=== PATIENT | female | born 1990 | race Caucasian/White ===

== ENCOUNTER → 2017-02-16 | Outpatient (CLI) | payer OTHER ==
[~2017-02-16] MED LIST: AC325T PO; ACHYD1T PO; AMPH7.5T PO; DCS100C PO; FERR-57 PO; HYDR-3583 PO; IBP600T1 PO; Ibuprofen PO; NAPR550T PO; PREN1TAB25 PO; PREN1TAB39 PO; ZLP10T PO
--- NOTE | 2017-02-16 14:45 | Diagnostic Imaging Report ---
INDICATION: Evaluate size and dates. COMPARISON: None. DISCUSSION: Transabdominal sonographic evaluation of the pelvis was performed. Single live intrauterine at 16 weeks 2 days by today's sonographic measurements. EDC by today's ultrasound is 08/01/2017. presentation is cephalic. Normal amniotic fluid index. Grade 1 placenta is located anteriorly with no placenta previa. heart rate measures 150 beats per minute. gender is female. Biparietal diameter measures 3.4 cm. Head circumference measures 12.5 cm. Abdominal circumference measures 9.7 cm. Femur length measures 2 cm. No acute abnormality identified. IMPRESSION: 1. Single live intrauterine at 16 weeks 2 days by sonographic measurements. 2. Recommend short-term sonographic followup for detailed anatomical survey. Dictated by: Dictated on workstation # [id number]
== END ==
LOC: RAD 10:09
PROVIDERS: ATTEND Family Medicine
DX: Z36 Encounter for antenatal screening of mother (principal); Z3A.14 14 weeks gestation of pregnancy
CPT/HCPCS: 76805

== ENCOUNTER → 2017-05-17 | Outpatient (CLI) | payer MEDICAID ==
--- NOTE | 2017-05-17 17:23 | Diagnostic Imaging Report ---
INDICATION: Evaluate size and dates. TECHNIQUE: Multiple real-time grayscale images were obtained over the gravid uterus. COMPARISON: None FINDINGS: Single live intrauterine with anatomic measurement corresponding to a 29 week, 1 day gestation. Fetus is in the cephalic presentation. Anterior placenta. heart rate 155 bpm. Normal cerebellum, ventricles, four-chamber heart, stomach, kidneys, urinary bladder, cord insertion and spine are documented. REYNALDO measures 11.76 cm. Biometrical measurements are as follows: Biparietal 7.38 cm, age 29 weeks 5 days. Head circumference 26.58 cm, age 29 weeks 0 days. Abdominal circumference 24.38 cm, age 28 weeks 5 days. Femur length 5.44 cm, age 28 weeks 6 days. Sonographic estimate age: 29 weeks 1 days. Sonographic estimated date of delivery: 08/01/2017. Estimated Weight: 1280 gm (+/- 187 gm). LMP percentile: 25%. heart rate: 155 beats per minute. number: 1 of 1. IMPRESSION: Single intrauterine with anatomic measurements corresponding to a 29 week, 1 day gestation. No anatomic abnormalities identified. Measurements as above. Dictated by: Dictated on workstation # [id number]
== END ==
LOC: RAD 13:05
PROVIDERS: ATTEND Family Medicine
DX: Z36 Encounter for antenatal screening of mother (principal); Z3A.29 29 weeks gestation of pregnancy
CPT/HCPCS: 76805

== ENCOUNTER 2017-06-06 20:04 | Outpatient (CLI) | payer MEDICAID ==
[~2017-06-06] VITALS: Ht 157.5 cm; Wt 59.9 kg
[2017-06-06] MEDS ORDERED: PREN-142 PO (20:19)
[2017-06-06] MEDS ORDERED: FERR-84 PO (20:19)
[2017-06-06 20:28] LABS: BILIRUBIN,URINE NEGATIVE (NEGATIVE); KETONES,URINE NEGATIVE (NEGATIVE); LEUKOCYTE ESTERASE ,URINE 3+ (NEGATIVE); NITRITE,URINE NEGATIVE (NEGATIVE); PH,URINE 8 (5-9); PROTEIN,URINE 1+ (NEGATIVE); UROBILINOGEN,URINE NORMAL (NORMAL)
[2017-06-06 20:29] VITALS: BP 114/72
[2017-06-06] MEDS ORDERED: CEPHALEXIN 250 MG (KEFLEX) CAP PO ONE ×2 (21:09→21:15)
[2017-06-07] MEDS ORDERED: CEPH-506 PO (05:00)
--- NOTE | 2017-06-07 08:12 | Physician Query-Final Dx ---
VELVET ABBASI 06/07/17 0812: Clinic Account Progress/Dx Physician Query: Please give diagnosis Date of Service Jun 06, 2017 at 20:04 DAKOTA HURLEY MD 07/03/17 1318: Clinic Account Progress/Dx DIAGNOSIS: Diagnosis Decreased movement VELVET ABBASI Jun 07, 2017 08:12 DAKOTA HURLEY MD Jul 03, 2017 13:18
[2017-06-07] MEDS ORDERED: CEPHALEXIN 250 MG (KEFLEX) CAP PO SCH (09:00)
== END 2017-06-06 23:11 | disposition home or self-care (01) ==
LOC: WSo 20:04 → LDRP 20:04 → WSo 23:11
PROVIDERS: ATTEND Family Medicine
DX: O36.8130 Decreased fetal movements, third trimester, not applicable or unspecified (principal); Z3A.32 32 weeks gestation of pregnancy
CPT/HCPCS: 81000; 99214

== ENCOUNTER 2017-07-18 16:46 | Inpatient (IN) | payer MEDICAID ==
[~2017-07-18] VITALS: Ht 157.5 cm; Wt 59.9 kg
[2017-07-18] VITALS (9 sets, daily range): BP systolic 101–125; BP diastolic 53–69
[~2017-07-18 16:46] MED LIST changes: +CEPH-506 PO; +FERR-84 PO; +PREN-142 PO
[2017-07-18] MEDS ORDERED: LACTATED RINGERS 1,000 ML IV ONE (18:15)
[2017-07-18 18:23] LABS: BILIRUBIN,URINE NEGATIVE (NEGATIVE); KETONES,URINE NEGATIVE (NEGATIVE); LEUKOCYTE ESTERASE ,URINE 1+ (NEGATIVE); NITRITE,URINE NEGATIVE (NEGATIVE); PH,URINE 7 (5-9); PROTEIN,URINE NEGATIVE (NEGATIVE); UROBILINOGEN,URINE NORMAL (NORMAL)
[2017-07-18 18:29] LABS: SQUAMOUS EPITHELIAL CELL,UR RARE /HPF; WBC,URINE RARE /HPF
--- NOTE | 2017-07-18 18:46 | History & Physical-OB ---
OB - Chief Complaint & HPI Date/Time Date of Admission: currently observation status July 18, 2017 Time Seen by Provider: 18:45 Chief Complaint/History OB-Reason for Admission/Chief: contractions Hx : 5 Hx Para: 3 Expected Date of Delivery: Aug 01, 2017 Gestational Age in Weeks: 38 Gestational Age in Days: 0 History of Labs GBS negative Allergies and Home Medications Allergies Coded Allergies: Penicillins (Unverified Allergy, Unknown, STOPS BREATHING, 05/02/14) Sulfa (Sulfonamide Antibiotics) (Unverified Allergy, Unknown, FAMILY HX OF REACTIONS, 05/02/14) atomoxetine HCl (Unverified Adverse Reaction, Intermediate, SWELLING IN THROAT, 07/10/13) Home Medications Amphet Asp/Amphet/D-Amphet 7.5 Mg Tablet, 15 MG PO DAILY, (Reported) Ferrous Sulfate 325 Mg Tablet, 325 MG PO DAILY, (Reported) Vit No.124/Iron/FA 1 Each Tablet, 1 EACH PO DAILY, (Reported) OB - History Hx of Present Care: Yes Ultrasounds: Normal mid trimester US Obstetrical Complications: None Medical Complications: None Obstetrical History Hx : 5 Hx Para: 3 Hx Termination: Yes Hx Total # of Abortions (Spona: 1 Hx Multiple Gestation: No Hx Stillbirth: No Hx Complication: No Hx Induced Hypertens: No Hx Maternal Gestational Diabet: No Delivery History Hx Dystocia: No Hx Large For Gestational Age I: No Hx Small for Gestational Age I: No Hx Section: Yes Hx Vaginal Delivery Post C-Sec: No Hx Blood Disorders: No Patient Past Medical History no chronic medical problems Social History/Family History Recent Infectious Disease Expo: No Immunizations Tetanus Booster (TDap): Less than 5yrs Date of Influenza Vaccine: Oct 14, 2013 OB - Admission Exam Physical Exam Date Seen by Provider: Jul 18, 2017 Time Seen by Provider: 18:45 Vitals: Vital Signs 07/18/17 18:00 Pulse 88 Resp 18 B/P (MAP) 106/63 HEENT: Moist Membranes Heart: Rhythm Normal Lungs: Clear Abdomen: Gravid Cervical Dilatation: Fingertip Effacement: 50% Station: Ballotable Membranes: Intact Heart Rate: 140's Accelerations: Accelerations Present Decelerations: Variable Decelerations (few) Contractions on Admission: < 5 Minutes Apart Intensity: Mild Labs Laboratory Tests Test 07/18/17 18:15 Range/Units Urine Color YELLOW Urine Clarity CLEAR Urine pH 7 5-9 Urine Specific Riva 1.005 L 1.016-1.022 Urine Protein NEGATIVE NEGATIVE Urine Glucose (UA) NEGATIVE NEGATIVE Urine Ketones NEGATIVE NEGATIVE Urine Nitrite NEGATIVE NEGATIVE Urine Bilirubin NEGATIVE NEGATIVE Urine Urobilinogen NORMAL NORMAL MG/DL Urine Leukocyte Esterase 1+ H NEGATIVE Urine RBC (Auto) NEGATIVE NEGATIVE Urine RBC NONE /HPF Urine WBC RARE /HPF Urine Squamous Epithelial Cells RARE /HPF Urine Crystals NONE /LPF Urine Bacteria NEGATIVE /HPF Urine Casts NONE /LPF Urine Mucus NEGATIVE /LPF Urine Culture Indicated NO OB - Assessment/Plan/Diagnosis Assessment Assessment: other (intrauterine at 38 weeks with uterine contractions and history of previous section) Plan Plan: Expectant Management Other Plan -Will continue to monitor for any change of cervix -IV fluids initiated - DARCIE DOLL MD Jul 18, 2017 18:46
[2017-07-18 19:56] LABS: BASOPHILS % (AUTO) 0 % (0-10); EOSINOPHILS # (AUTO) 0.2 10^3/uL (0.0-0.3); EOSINOPHILS % (AUTO) 1 % (0-10); LYMPHOCYTES # (AUTO) 2.9 X 10^3 (1.0-4.0); LYMPHOCYTES % (AUTO) 17 % (12-44); MEAN CORPUSCULAR HEMOGLOBIN 33 PG (25-34); MEAN CORPUSCULAR HGB CONC 33 G/DL (32-36); MEAN CORPUSCULAR VOLUME 98 FL (80-99); MEAN PLATELET VOLUME 9.7 FL (7.4-10.4); MONOCYTES # (AUTO) 1.4 X 10^3 (0.0-1.0); MONOCYTES % (AUTO) 8 % (0-12); NEUTROPHILS # (AUTO) 12.6 X 10^3 (1.8-7.8); NEUTROPHILS % (AUTO) 74 % (42-75); PLATELET COUNT 432 10^3/uL (130-400); RED BLOOD COUNT 3.71 10^6/uL (4.35-5.85); RED CELL DISTRIBUTION WIDTH 14.6 % (10.0-14.5); WHITE BLOOD COUNT 17.2 10^3/uL (4.3-11.0)
[2017-07-18] MEDS: LACTATED RINGERS 1,000 ML IV SCH (20:10)
[2017-07-18 20:38] LABS: BAND NEUTROPHILS 1 %; BASOPHILS % (MANUAL) 0 %; EOSINOPHILS % (MANUAL) 2 %; LYMPHOCYTES % (MANUAL) 24 %; NEUTROPHILS % (MANUAL) 72 %
[2017-07-18] MEDS ORDERED: ZOLPIDEM 5 MG (AMBIEN) TAB PO SCH (21:00)
[2017-07-19 07:00] VITALS: BP 107/62
[2017-07-19] MEDS ORDERED: ceFAZolin 2 GM/50 ML NS 50 ML IV ONE (07:00)
[2017-07-19] MEDS ORDERED: CITRIC ACID/SOB CIT (BICITRA) 30 ML UDC ONE (07:01)
[2017-07-19] MEDS ORDERED: METOCLOPRAMIDE INJ 10 MG/2 ML (REGLAN) ONE (07:01)
[2017-07-19] MEDS ORDERED: FAMOTIDINE 20MG/2ML IV (PEPCID) ONE (07:07)
[2017-07-19] MEDS ORDERED: METOCLOPRAMIDE INJ 10 MG/2 ML (REGLAN) IV ONE (07:15)
[2017-07-19] MEDS ORDERED: CITRIC ACID/SOB CIT (BICITRA) 30 ML UDC PO ONE (07:15)
[2017-07-19] MEDS ORDERED: FAMOTIDINE 20MG/2ML IV (PEPCID) IV ONE (07:15)
[2017-07-19] MEDS: LACTATED RINGERS 1,000 ML IV SCH ×3 (07:16→07:55)
[2017-07-19] MEDS ORDERED: OXYTOCIN/NORMAL SALINE 1,000 ML IV ONE (07:19)
[2017-07-19] MEDS ORDERED: fentaNYL INJECTION 100 MCG/2 ML AMP ONE (07:19)
[2017-07-19] MEDS ORDERED: OXYTOCIN/NORMAL SALINE 500 ML IV SCH (07:44)
[2017-07-19] MEDS ORDERED: MEASLES,MUMPS,RUBELLA 1 EA INJ SC SCH (07:45)
[2017-07-19] MEDS ORDERED: ONDANSETRON 4 MG/2 ML (SDV) Z0FRAN IVP PRN (07:45)
[2017-07-19] MEDS ORDERED: HYDROmorphone (DILAUDID) 2 MG/ML VIAL IVP PRN (07:45)
[2017-07-19] MEDS ORDERED: TETANUS,DIPTH,PERTUSS P/F (BOOSTRIX) 0.5 ML VIAL IM SCH (07:45)
[2017-07-19] MEDS: KETOROLAC 30 MG/ML VIAL IVP SCH ×2 (09:00→16:31)
[2017-07-19] MEDS: HYDROcodone/APAP 5 MG/325 MG (LORTAB) TAB PO PRN ×3 (11:10→23:37)
[2017-07-19 13:15] VITALS: BP 106/63
--- NOTE | 2017-07-19 13:57 | OPERATIVE REPORT ---
DATE OF SERVICE: PREOPERATIVE DIAGNOSIS: 1. A 27-year-old G4, P3 at 38 weeks and 1 day gestation. 2. Previous section. 3. Family history of ovarian cancer. POSTOPERATIVE DIAGNOSIS: 1. A 27-year-old G4, P3 at 38 weeks and 1 day gestation. 2. Previous section. 3. Family history of ovarian cancer. PROCEDURE PERFORMED: Repeat low transverse section with risk reducing bilateral salpingectomy. SURGEON: Dr. Hema Mclean. ANESTHESIA: Spinal. ESTIMATED BLOOD LOSS: 600 mL. URINE OUTPUT: 175 mL clear at the end of the procedure. FLUIDS: 1700 mL Lactated Ringers solution. FINDINGS: Live female infant, weight pending. Apgars of 7 and 8. Grossly normal appearing uterus, bilateral fallopian tubes and ovaries. Dense peritoneal and lower pelvic anterior abdominal wall scar tissue. SPECIMENS SENT: Bilateral fallopian tubes. INDICATION: This 27-year-old female was admitted last night for signs of labor, contractions every 3-5 minutes. She was IV fluid bolused and fetus remained stable overnight. Therefore, this morning, we awaited to see if her contraction pattern would change. It did space out to every 5-7 minutes; however, the patient continued to be very uncomfortable so we decided to proceed with delivery at 38 and 1 due to suspicion for underlying latent labor. Risks of the procedure were reviewed with the patient in the preoperative area, risks of bleeding, infection, damage to any surrounding structures including but not limited to bowel, bladder, ureter, kidneys, risks of damaging the infant, risk of need for blood transfusion and even . After everything was discussed with the patient, consent was obtained in preoperative area and the patient was taken to the operating room. OPERATIVE REPORT IN DETAIL: Once in the operating room, spinal anesthesia was found to be adequate. She was placed in the supine position with leftward tilt and prepped and draped in normal sterile fashion. A Pfannenstiel skin incision made through a previously existing scar using a knife and carried down to underlying fascia using Bovie cautery. The fascial incision was extended laterally using Bovie cautery. Superior aspect of the fascial incision was then grasped with Guerline clamps, tented upward and dissected off the underlying rectus muscle. The inferior aspect of the fascial incision was then grasped with a Guerline clamp, tented upward and dissected off the underlying rectus muscle. Rectus muscle was then dissected down the midline using Banda scissors which exposes the peritoneum which was entered bluntly and the peritoneal incision was extended superiorly and inferiorly using Metzenbaum scissors with good visualization of the underlying bowel and bladder. I then identified the lower uterine segment after placing the Junior ring retractor in the peritoneal incision which offered significant lateral sidewall retraction. I then proceeded with myotomy through the lower uterine segment using the knife and carried down until I am able to visualize the membrane. I created a bladder flap with blunt dissection at my 1st knife pass. Amniotomy was then performed using Allis clamp. Clear fluid was noted. Infant found to be in vertex presentation. With gentle fundal pressure the 's head was delivered up through the incision where there was a nuchal cord reduced x1. The nares and oropharynx were bulb suctioned. Anterior and posterior shoulders were delivered and the infant was brought to the operative field where cord was triply clamped and cut, was taken off the field by Dr. Hernández. Cord blood was collected, 3 vessel cord with intact placenta that was delivered spontaneously thereafter. IV Pitocin was initiated to facilitate uterine contractions and fundus was firmed by manual massage. Uterus was then exteriorized and cleared of all endometrial clots and debris. I then closed the uterine incision using 0 Vicryl in running locked fashion. A 2nd layer of 0 Monocryl was placed in imbricating fashion. Excellent hemostasis is noted after doing so. I then elevated the uterus up out of the incision which exposes the fallopian tubes bilaterally. I removed bilateral fallopian tubes in this identical fashion. I created a window in the mesosalpinx using monopolar cautery and then took this down the mesosalpinx it from its blood supply. I then at the distal ampullary portion of the tube placed a 2-0 Vicryl suture tie and then the fallopian tube from its distal connection point. At its more proximal connection point at the uterus, I in a similar fashion placed a 2-0 Vicryl suture ligating the tube at this area and amputating it using cautery after doing so. After which there was no active bleeding from any of my dissection planes. I placed the uterus back within the pelvis, copiously irrigated the pelvis. There was no active bleeding noted from any of my dissection planes. Intercede antiadhesive was placed at the lower transverse incision. I then proceeded with closing the peritoneum using 3-0 Vicryl suture in running fashion. The rectus muscle was reapproximated using 3-0 Vicryl in interrupted fashion. The fascia was reapproximated using 0 Vicryl suture in running fashion, the subcutaneous tissues were reapproximated using 3-0 plain in a running subcuticular stitch. The skin was reapproximated using 4-0 Monocryl in running subcuticular. Dermabond was applied to the incision. Sterile dressing was adhesed with white tape. The Mares catheter was left in place to be taken out in the recovery area. Lap and sponge counts correct at the end of the procedure. Instrument count was correct as well. The patient tolerated the procedure well and was sent to recovery area in stable condition. Two grams of Ancef were given preoperatively for infection prophylaxis. Job ID: [id number] DocumentID: [id number] Dictated Date: 07/19/2017 09:00:02 Band Scroll Saw Operator Date: 07/19/2017 13:56:34 Dictated By: DO ALAN VO
[2017-07-19] MEDS ORDERED: CATHETER FLUSH 10 ML SYR IV SCH (14:00)
[2017-07-19 18:30] VITALS: BP 109/57
[2017-07-19 20:40] VITALS: BP 116/67
[2017-07-19] MEDS: DOCUSATE SODIUM 100 MG (COLACE) CAP PO SCH (20:47)
[2017-07-19] MEDS: IBUPROFEN 600 MG (MOTRIN) TAB PO SCH (22:15)
[2017-07-20 02:25] VITALS: BP 103/63
[2017-07-20] MEDS ORDERED: IBUPROFEN 600 MG (MOTRIN) TAB PO ONE (03:43)
[2017-07-20] MEDS: IBUPROFEN 600 MG (MOTRIN) TAB PO SCH ×4 (03:52→20:16)
[2017-07-20 05:44] LABS: BASOPHILS % (AUTO) 0 % (0-10); EOSINOPHILS # (AUTO) 0.3 10^3/uL (0.0-0.3); EOSINOPHILS % (AUTO) 2 % (0-10); LYMPHOCYTES # (AUTO) 3.3 X 10^3 (1.0-4.0); LYMPHOCYTES % (AUTO) 25 % (12-44); MEAN CORPUSCULAR HEMOGLOBIN 33 PG (25-34); MEAN CORPUSCULAR HGB CONC 33 G/DL (32-36); MEAN CORPUSCULAR VOLUME 98 FL (80-99); MONOCYTES # (AUTO) 1.7 X 10^3 (0.0-1.0); MONOCYTES % (AUTO) 13 % (0-12); NEUTROPHILS % (AUTO) 60 % (42-75); PLATELET COUNT 441 10^3/uL (130-400); RED BLOOD COUNT 3.22 10^6/uL (4.35-5.85); RED CELL DISTRIBUTION WIDTH 14.6 % (10.0-14.5); WHITE BLOOD COUNT 13.4 10^3/uL (4.3-11.0)
[2017-07-20 08:45] VITALS: BP 101/66
[2017-07-20] MEDS: DOCUSATE SODIUM 100 MG (COLACE) CAP PO SCH ×2 (08:45→20:16)
[2017-07-20] MEDS: HYDROcodone/APAP 5 MG/325 MG (LORTAB) TAB PO PRN ×3 (08:46→20:17)
--- NOTE | 2017-07-20 11:42 | Progress Note-Standard ---
Standard Progress Note Progress Notes/Assess & Plan Date Seen by Provider: Jul 20, 2017 Time Seen by Provider: 11:45 Progress/Assessment & Plan Patient doing well POD 1 RLTCS with RRS bilateral. She is ambulating and voiding freely, pain well controlled. Vital Sign - Last 24 Hours 07/19/17 07/19/17 07/19/17 07/20/17 13:15 18:30 20:40 02:25 Temp 97.6 96.7 97.2 96.6 Pulse 69 85 73 75 Resp 18 18 18 18 B/P (MAP) 106/63 109/57 116/67 103/63 Pulse Ox 99 99 98 96 O2 Delivery Room Air Room Air 07/20/17 08:45 Temp 97.8 Pulse 68 Resp 18 B/P (MAP) 101/66 Pulse Ox 98 Incision: c/d/i Laboratory Tests Test 07/20/17 05:07 Range/Units White Blood Count 13.4 H 4.3-11.0 10^3/uL Red Blood Count 3.22 L 4.35-5.85 10^6/uL Hemoglobin 10.5 L 11.5-16.0 G/DL Hematocrit 32 L 35-52 % Mean Corpuscular Volume 98 80-99 FL Mean Corpuscular Hemoglobin 33 25-34 PG Mean Corpuscular Hemoglobin Concent 33 32-36 G/DL Red Cell Distribution Width 14.6 H 10.0-14.5 % Platelet Count 441 H 130-400 10^3/uL Mean Platelet Volume 10.0 7.4-10.4 FL Neutrophils (%) (Auto) 60 42-75 % Lymphocytes (%) (Auto) 25 12-44 % Monocytes (%) (Auto) 13 H 0-12 % Eosinophils (%) (Auto) 2 0-10 % Basophils (%) (Auto) 0 0-10 % Neutrophils # (Auto) 8.0 H 1.8-7.8 X 10^3 Lymphocytes # (Auto) 3.3 1.0-4.0 X 10^3 Monocytes # (Auto) 1.7 H 0.0-1.0 X 10^3 Eosinophils # (Auto) 0.3 0.0-0.3 10^3/uL Basophils # (Auto) 0.0 0.0-0.1 10^3/uL Diagnosis: POD 1 RLTCS and RRS Acute blood loss anemia P: Continue routine PP/PO care Replace iron Anticipate dc tomorrow ESTEFANI LOCKETT DO Jul 20, 2017 11:42 am
[2017-07-20] MEDS ORDERED: IBUP-1773 PO (11:43)
[2017-07-20] MEDS ORDERED: DOCU100C37 PO (11:43)
[2017-07-20] MEDS ORDERED: HYDR-3812 PO (11:43)
--- NOTE | 2017-07-20 11:44 | Discharge Inst-Women's Service ---
Discharge Inst-Women's Serv Depart Medication/Instructions New, Converted or Re-Newed RX: RX on Chart Consults/Follow Up Additional Follow Up: Yes Orders/Referrals Dr. Mclean in 7-[address] Hernández in 6 weeks Activity Activity: Activity as Tolerated Driving Instructions: No Driving for 1 Week NO SMOKING: NO SMOKING Nothing Inside Vagina: No Douching, No [place], No Tampons Diet Discharge Diet: No Restrictions Symptoms to Report to : Bleeding Excessive, Pain Increased, Fever Over 101 Degrees F, Vaginal Bleeding Increase, Questions/Concerns For Any Problems or Questions: Contact Your Physician Skin/Wound Care Infection Signs and Symptoms: Increased Redness, Foul Odor of Wound, Increased Drainage, Skin Itchy or Has a Rash, Increased Swelling, Temperature Above 101 F Operative Area Clean and Dry: Keep Incision Clean/Dry Stitches/[place]/Dermabond: Dermabond, Care of Stitches Bathing Instructions: ESTEFANI Arredondo DO Jul 20, 2017 11:44 am
[2017-07-20 12:50] VITALS: BP 110/74
--- NOTE | 2017-07-20 15:43 | Anesthesia-Regional Post-Op ---
Regional Patient Condition Mental Status: Alert, Oriented x3 Circulation: Same as Pre-Op Headache: Absent Sensation: Full Recovery Motor Block: Absent Post Op Complications Complications None Follow Up Care/Instructions Patient Instructions None needed. Anesthesia/Patient Condition Patient is doing well, no complaints, stable vital signs, no apparent adverse anesthesia problems. She is ambulating well without back pain from spinal. JESSICA HUYNH DO Jul 20, 2017 15:43
[2017-07-20 16:45] VITALS: BP 112/71
[2017-07-20 20:15] VITALS: BP 120/69
[2017-07-21 03:25] VITALS: BP 116/71
[2017-07-21] MEDS: HYDROcodone/APAP 5 MG/325 MG (LORTAB) TAB PO PRN (06:55)
--- NOTE | 2017-07-21 07:48 | Progress Note-Standard ---
Standard Progress Note Progress Notes/Assess & Plan Date Seen by Provider: Jul 21, 2017 Time Seen by Provider: 08:00 Progress/Assessment & Plan Patient doing well POD 2 RLTCS with RRS bilateral. She is ambulating and voiding freely, pain well controlled. Vital Sign - Last 24 Hours 07/20/17 07/20/17 07/20/17 07/20/17 08:45 12:50 16:45 20:15 Temp 97.8 98.2 97.8 97.6 Pulse 68 89 68 66 Resp 18 18 18 18 B/P (MAP) 101/66 110/74 112/71 120/69 Pulse Ox 98 97 100 100 07/21/17 03:25 Temp 97.8 Pulse 73 Resp 16 B/P (MAP) 116/71 Pulse Ox 94 Diagnosis: POD 2 RLTCS and RRS Acute blood loss anemia P: Continue routine PP/PO care Replace iron Anticipate dc today ESTEFANI LOCKETT DO Jul 21, 2017 7:48 am
[2017-07-21 08:45] VITALS: BP 116/66
[2017-07-21] MEDS: DOCUSATE SODIUM 100 MG (COLACE) CAP PO SCH (09:43)
[2017-07-21] MEDS: IBUPROFEN 600 MG (MOTRIN) TAB PO SCH (09:43)
[2017-07-21 11:30] VITALS: BP 116/66
[2017-07-23] MEDS ORDERED: INFLUENZA TRIvalent 2017-2018 0.5 ML/45 MCG SYR IM ONE (07:45)
== END 2017-07-21 11:30 | disposition home or self-care (01) | DRG 765 ==
LOC: WSo 16:46 → LDRP 16:47 → WSo 07-19 07:00 → LDRP 07-19 07:01
PROVIDERS: ADMIT Obstetrics & Gynecology; ATTEND Family Medicine
PROC: 0UT70ZZ Resection of Bilateral Fallopian Tubes, Open Approach (ICD-10-PCS; 2017-07-19)
PROC: 10D00Z1 Extraction of Products of Conception, Low, Open Approach (ICD-10-PCS; principal; 2017-07-19 07:36)
DX: O34.211 Maternal care for low transverse scar from previous cesarean delivery (principal); O90.81 Anemia of the puerperium; D62 Acute posthemorrhagic anemia; Z80.41 Family history of malignant neoplasm of ovary; Z3A.38 38 weeks gestation of pregnancy; Z37.0 Single live birth
CPT/HCPCS: 36415; 80306; 81000; 85007; 85025; 85027; 86850; 86900; 86901; 87088; 94664; 99212

== ENCOUNTER → 2019-09-18 | Outpatient (CLI) | payer SELFPAY ==
[~2019-09-18] MED LIST changes: +ACHD5005 PO; +DOCU100C37 PO; +IBUP-1773 PO
== END ==
LOC: WOUNDCARE 12:50
PROVIDERS: ATTEND Surgery
DX: L97.512 Non-pressure chronic ulcer of other part of right foot with fat layer exposed (principal); I70.235 Atherosclerosis of native arteries of right leg with ulceration of other part of foot; I65.21 Occlusion and stenosis of right carotid artery; I71.4 Abdominal aortic aneurysm, without rupture; T65.222A Toxic effect of tobacco cigarettes, intentional self-harm, initial encounter; F17.218 Nicotine dependence, cigarettes, with other nicotine-induced disorders; R09.89 Other specified symptoms and signs involving the circulatory and respiratory systems
CPT/HCPCS: 99213

== ENCOUNTER → 2019-09-24 | Outpatient (CLI) | payer SELFPAY | LOC: WOUNDCARE 15:49 | PROVIDERS: ATTEND Surgery | DX: I70.261 Atherosclerosis of native arteries of extremities with gangrene, right leg (principal); L97.512 Non-pressure chronic ulcer of other part of right foot with fat layer exposed; I65.21 Occlusion and stenosis of right carotid artery; I71.4 Abdominal aortic aneurysm, without rupture; T65.222A Toxic effect of tobacco cigarettes, intentional self-harm, initial encounter; F17.218 Nicotine dependence, cigarettes, with other nicotine-induced disorders; R09.89 Other specified symptoms and signs involving the circulatory and respiratory systems | CPT/HCPCS: 99212 ==

== ENCOUNTER → 2019-09-30 | Outpatient (CLI) | payer SELFPAY ==
--- NOTE | 2019-09-30 13:53 | Diagnostic Imaging Report ---
INDICATION: Abdominal aortic aneurysm. TECHNIQUE: Multiple real-time grayscale images were obtained of the aorta in various projections. FINDINGS: Proximal abdominal aorta measures 1.7 x 1.7 cm. Mid abdominal aorta measures 1.2 x 1.2 cm. The distal aorta measures 1.2 x 1 cm. Both iliac arteries measure 0.8 cm. IMPRESSION: No evidence of aortic or iliac aneurysm. Dictated by: Dictated on workstation # [id number]
== END ==
LOC: RAD 09:28
PROVIDERS: ATTEND Surgery
DX: I71.4 Abdominal aortic aneurysm, without rupture (principal)
CPT/HCPCS: 76775

== ENCOUNTER → 2019-10-02 | Outpatient (CLI) | payer SELFPAY | LOC: RAD 14:43 | PROVIDERS: ATTEND Surgery | DX: L97.512 Non-pressure chronic ulcer of other part of right foot with fat layer exposed (principal); I70.235 Atherosclerosis of native arteries of right leg with ulceration of other part of foot; I65.21 Occlusion and stenosis of right carotid artery; I71.4 Abdominal aortic aneurysm, without rupture; T65.222A Toxic effect of tobacco cigarettes, intentional self-harm, initial encounter; F17.218 Nicotine dependence, cigarettes, with other nicotine-induced disorders; I96 Gangrene, not elsewhere classified; R09.89 Other specified symptoms and signs involving the circulatory and respiratory systems ==

== ENCOUNTER → 2019-10-02 | Outpatient (CLI) | payer SELFPAY ==
--- NOTE | 2019-10-02 16:29 | Diagnostic Imaging Report ---
PROCEDURE: US carotid duplex, bilateral. TECHNIQUE: Multiple real-time grayscale images were obtained over the carotid arteries in various projections, bilaterally. Additional spectral analysis and color Doppler duplex images were also obtained. INDICATION: Right carotid bruit COMPARISON: None available. FINDINGS: Parameters based on the consensus panel Veliz-Scale and Doppler ultrasound criteria published August 2003, Radiology, Volume 229. DOPPLER (peak systolic velocity M/S Right Left CCA 1.68 1.73 ICA Proximal 1.37 .97 ICA Mid 1.53 1.13 ICA Distal .87 .96 RATIO 0.9 0.7 ECA 1.45 1.19 VERT .71 .80 Right carotid circulation: There is moderate plaque formation in the right carotid bifurcation. Based on grayscale images and flow velocity criteria, there is moderate stenoses (50-69%) of the right internal carotid artery. Left carotid circulation: There is mild plaque formation in the left carotid bifurcation. Based on grayscale images and flow velocity criteria, there is mild stenoses (<50%) of the left internal carotid artery. Flow in the bilateral vertebral arteries is antegrade. IMPRESSION: 1. Moderate (50-69%) stenosis of the right internal carotid artery. 2. Mild (<50%) stenosis of the left internal carotid artery. Society of Radiologist in Ultrasound Consensus: Normal: ICA PSV is <125 cm/sec and no plaque or intimal thickening is visible sonographically ICA/CCA PSV ratio <2.0 ICA EDV <40 cm/sec Mild (<50% ICA stenosis): ICA PSV is <125 cm/sec and plaque or intimal thickening is visible sonographically ICA/CCA PSV ratio <2.0 ICA EDV <40 cm/sec Moderate (50-69% ICA stenosis) ICA PSV is 125-230 cm/sec and plaque is visible sonographically ICA/CCA PSV ratio of 2.0-4.0 ICA EDV of 40-100 cm/sec Severe (?70% ICA stenosis but less than near occlusion): ICA PSV is >230 cm/sec and visible plaque and luminal narrowing are seen at veliz-scale and color Doppler ultrasound (the higher the Doppler parameters lie above the threshold of 230 cm/sec, the greater the likelihood of severe disease) ICA/CCA PSV ratio >4 ICA EDV >100 cm/sec Near occlusion of the ICA Velocity parameters may not apply, since velocities may be high, low, or undetectable Markedly narrowed lumen at color or power Doppler ultrasound Total occlusion of the ICA: No detectable patent lumen at veliz-scale ultrasound and no flow with spectral, power, and color Doppler ultrasound May be compensatory increased velocity in the contralateral carotid Dictated by: Dictated on workstation # [id number]
== END ==
LOC: WOUNDCARE 15:44
PROVIDERS: ATTEND Surgery
DX: I70.261 Atherosclerosis of native arteries of extremities with gangrene, right leg (principal); I65.23 Occlusion and stenosis of bilateral carotid arteries; L97.512 Non-pressure chronic ulcer of other part of right foot with fat layer exposed; I71.4 Abdominal aortic aneurysm, without rupture; T65.222A Toxic effect of tobacco cigarettes, intentional self-harm, initial encounter; F17.218 Nicotine dependence, cigarettes, with other nicotine-induced disorders; R09.89 Other specified symptoms and signs involving the circulatory and respiratory systems
CPT/HCPCS: 93880; 99212

== ENCOUNTER 2023-04-24 10:19 | Emergency (ER) | payer MEDICAID ==
[~2023-04-24] VITALS: Ht 157 cm; Wt 62.0 kg
[~2023-04-24 10:19] MED LIST changes: -OMEP20TA56 PO
[2023-04-24] MEDS ORDERED: fentaNYL INJ 100 MCG/2 ML AMP IVP STA (11:04)
--- NOTE | 2023-04-24 11:12 | ED Abdominal Pain ---
General Chief Complaint: Abdominal/GI Problems Stated Complaint: ABD PAIN Nursing Triage Note: SENT OVER FROM NING OFFICE WITH POSSIBLE GB ISSUES. WAS SEEN BY HIM LAST WEEK AND SCHEDULED FOR A ULTRASOUND ON THE . TODAY COMPLAINS OF SEVERE ABD PAIN. Source of Information: Patient Exam Limitations: No Limitations History of Present Illness Date Seen by Provider: Apr 24, 2023 Time Seen by Provider: 10:59 Initial Comments 33-year-old female presents to the ER with complaints of fluctuating upper abdominal pain that started last night. She states the pain comes in waves, and radiates to her left lower abdomen and back. She saw Dr. Mejía, surgery, last 04/21/2023. She is scheduled to have an ultrasound on 04/26/2023. This morning she called the office, and they told her to come to the ER. She also co mplains of a burning in her throat. She denies fevers, but states that her thought she felt warm last night. Reports nausea, no vomiting. Denies vaginal bleeding, discharge, dysuria. States last bowel movement was last night, states it started out hard and then was loose. Past medical history includes hypertension and ADHD, she takes Adderall and lisinopril. Past abdo regina surgeries includes 4 C-sections. Allergies and Home Medications Allergies Coded Allergies: Penicillins (Unverified Allergy, Unknown, STOPS BREATHING, 05/02/14) Sulfa (Sulfonamide Antibiotics) (Unverified Allergy, Unknown, FAMILY HX OF REACTIONS, 05/02/14) atomoxetine HCl (Unverified Adverse Reaction, Intermediate, SWELLING IN THROAT, 07/10/13) Patient Home Medication List Home Medication List Reviewed: Yes Amphet Asp/Amphet/D-Amphet (Adderall 7.5 Mg Tablet) 7.5 Mg Tablet, 15 MG PO DAILY, (Reported) Entered as Reported by: CHEN YOUNG on 07/10/13 1249 Docusate Sodium (Docusate Sodium) 100 Mg Capsule, 100 MG PO BID PRN for CONSTIPATION-1ST LINE Prescribed by: ESTEFANI LOCKETT on 07/20/17 1143 Ferrous Sulfate (Iron) 325 Mg Tablet, 325 MG PO DAILY, (Reported) Entered as Reported by: TATYANA DOMÍNGUEZ on 06/06/17 2019 Hydrocodone Bit/Acetaminophen (Lortab 5 Mg Tablet) 1 Each Tablet, 1-2 TAB PO Q4H PRN for PAIN-MODERATE Prescribed by: ESTEFANI LOCKETT on 07/20/17 1143 Ibuprofen (Ibuprofen) 600 Mg Tablet, 600 MG PO Q6H Prescribed by: ESTEFANI LOCKETT on 07/20/17 1143 Omeprazole (Omeprazole) 20 Mg Tablet.dr, 20 MG PO DAILY Prescribed by: Sridevi Alexandre on 04/24/23 1436 Vit No.124/Iron/FA ( Vitamin Tablet) 1 Each Tablet, 1 EACH PO DAILY, (Reported) Entered as Reported by: TATYANA DOMÍNGUEZ on 06/06/17 2019 Review of Systems Review of Systems Constitutional: see HPI Past Ajqnbog-Qyizbw-Pzrywr Hx Patient Social History Tobacco Use?: Yes Smoking Status: Current Everyday Smoker Substance use?: No Alcohol Use?: No Immunizations Up To Date Tetanus Booster (TDap): Less than 5yrs PED Vaccines UTD: Yes Seasonal Allergies Seasonal Allergies: No Past Medical History Surgeries: Yes ( X2, ) Respiratory: No Cardiac: No Neurological: No Reproductive Disorders: No Female Reproductive Disorders: Endometriosis, Ovarian Cyst Genitourinary: No Gastrointestinal: No Musculoskeletal: No Endocrine: No HEENT: No Cancer: No Psychosocial: Yes (BIPOLAR, MANIC DEPRESSIVE AND STRESS DISORDER) Integumentary: Yes Eczema Blood Disorders: No Adverse Reaction/Blood Tranf: No Family Medical History Alcoholism 19 FATHER Congenital heart disease G8 BROTHER Family history: Arthritis 19 MOTHER Family history: Asthma 19 MOTHER Family history: Diabetes mellitus 19 FATHER Family history: Hypertension 19 FATHER Hereditary disease G8 BROTHER No Family History of: Abdominal aortic aneurysm Congestive heart failure Family history: Alzheimer's disease Family history: Breast disease Family history: Cardiovascular disease Family history: Gastrointestinal disease Family history: Thyroid disorder History of - anemia History of - respiratory disease Myocardial infarction Parkinson's disease Prostate cancer Psychotic disorder Seizure disorder Stroke No Pertinent Family Hx Physical Exam Vital Signs Vital Signs - First Documented 04/24/23 10:28 Temp 36.5 Pulse 59 Resp 16 B/P (MAP) 172/97 (122) Pulse Ox 100 O2 Delivery Room Air Capillary Refill : Less Than 3 Seconds Height/Weight/BMI Height: 5'2.00" Weight: 132lbs. 0.0oz. 59.812854ax; 25.00 BMI Method:Stated General Appearance: mild distress Neck: supple, normal inspection Respiratory: lungs clear, normal breath sounds, no respiratory distress, no accessory muscle use Cardiovascular: regular rate, rhythm Gastrointestinal: normal bowel sounds, soft, guarding (Right upper and mid upper), tenderness (Right upper and mid upper) Extremities: normal range of motion, normal inspection Neurologic/Psychiatric: alert, normal mood/affect Skin: normal color, warm/dry Progress/Results/Core Measures Results/Orders Lab Results Laboratory Tests Test 04/24/23 11:20 04/24/23 11:27 Range/Units White Blood Count 13.0 H 4.3-11.0 10^3/uL Red Blood Count 4.61 3.80-5.11 10^6/uL Hemoglobin 10.3 L 11.5-16.0 g/dL Hematocrit 34 L 35-52 % Mean Corpuscular Volume 74 L 80-99 fL Mean Corpuscular Hemoglobin 22 L 25-34 pg Mean Corpuscular Hemoglobin Concent 30 L 32-36 g/dL Red Cell Distribution Width 18.9 H 10.0-14.5 % Platelet Count 618 H 130-400 10^3/uL Mean Platelet Volume 9.4 9.0-12.2 fL Immature Granulocyte % (Auto) 1 % Neutrophils (%) (Auto) 75 42-75 % Lymphocytes (%) (Auto) 17 12-44 % Monocytes (%) (Auto) 6 0-12 % Eosinophils (%) (Auto) 1 0-10 % Basophils (%) (Auto) 0 0-10 % Neutrophils # (Auto) 9.8 H 1.8-7.8 10^3/uL Lymphocytes # (Auto) 2.2 1.0-4.0 10^3/uL Monocytes # (Auto) 0.8 0.0-1.0 10^3/uL Eosinophils # (Auto) 0.1 0.0-0.3 10^3/uL Basophils # (Auto) 0.1 0.0-0.1 10^3/uL Immature Granulocyte # (Auto) 0.1 0.0-0.1 10^3/uL Sodium Level 139 135-145 MMOL/L Potassium Level 3.1 L 3.6-5.0 MMOL/L Chloride Level 106 98-107 MMOL/L Carbon Dioxide Level 21 21-32 MMOL/L Anion Gap 12 5-14 MMOL/L Blood Urea Nitrogen 6 L 7-18 MG/DL Creatinine 0.68 0.60-1.30 MG/DL Estimat Glomerular Filtration Rate 117 BUN/Creatinine Ratio 9 Glucose Level 110 H 70-105 MG/DL Calcium Level 9.2 8.5-10.1 MG/DL Corrected Calcium 9.0 8.5-10.1 MG/DL Total Bilirubin 0.3 0.1-1.0 MG/DL Aspartate Amino Transf (AST/SGOT) 13 5-34 U/L Alanine Aminotransferase (ALT/SGPT) 9 0-55 U/L Alkaline Phosphatase 100 40-136 U/L Total Protein 7.3 6.4-8.2 GM/DL Albumin 4.2 3.2-4.5 GM/DL Lipase 22 8-78 U/L Urine Color YELLOW Urine Clarity CLEAR Urine pH 7.0 5-9 Urine Specific [place] 1.020 1.016-1.022 Urine Protein 2+ H NEGATIVE Urine Glucose (UA) NEGATIVE NEGATIVE Urine Ketones NEGATIVE NEGATIVE Urine Nitrite NEGATIVE NEGATIVE Urine Bilirubin NEGATIVE NEGATIVE Urine Urobilinogen 0.2 < = 1.0 MG/DL Urine Leukocyte Esterase NEGATIVE NEGATIVE Urine RBC (Auto) 1+ H NEGATIVE Urine RBC 5-10 H /HPF Urine WBC 0-2 /HPF Urine Squamous Epithelial Cells 2-5 /HPF Urine Crystals PRESENT H /LPF Urine Amorphous Sediment FEW MERCEDES PHOSPHATE H /LPF Urine Bacteria NEGATIVE /HPF Urine Casts NONE /LPF Urine Mucus SMALL H /LPF Urine Culture Indicated NO Urine Test NEGATIVE NEGATIVE My Orders Orders - SRIDEVI ALEXANDRE APRN Comprehensive Metabolic Panel (04/24/23 11:04) Lipase (04/24/23 11:04) Ua Culture If Indicated (04/24/23 11:04) Ed Iv/Invasive Line Start (04/24/23 11:04) Cbc With Automated Diff (04/24/23 11:04) Fentanyl Inj (Sublimaze Injection) (04/24/23 11:04) Ondansetron Injection (Zofran Injectio (04/24/23 11:15) Us Gallbladder 05317 (04/24/23 11:04) Hcg,Qualitative Urine (04/24/23 11:44) Ct Abdomen/Pelvis W (04/24/23 11:52) Iohexol Injection (Omnipaque 350 Mg/Ml 1 (04/24/23 12:45) Received Contrast (Hold Metformin- Contr (04/24/23 12:45) Ns (Ivpb) (Sodium Chloride 0.9% Ivpb Bag (04/24/23 12:45) Ns Iv 1000 Ml (Sodium Chloride 0.9%) (04/24/23 13:15) Lidocaine 2% Viscous 15 Ml (Xylocaine Vi (04/24/23 13:15) Antacid Suspension (Mylanta Suspension (04/24/23 13:15) Pantoprazole Injection (Protonix Injecti (04/24/23 13:15) Potassium Chloride (Tablet) (K Dur Table (04/24/23 13:30) Fentanyl Inj (Sublimaze Injection) (04/24/23 14:30) Medications Given in ED Current Medications Medications Dose Ordered Sig/Leisa Route Start Time Stop Time Status Last Admin Dose Admin Al Hydrox/Mg Hydrox/Simethicone 30 ml ONCE ONCE PO 04/24/23 13:15 04/24/23 13:16 DC 04/24/23 13:23 30 ML Fentanyl Citrate 50 mcg ONCE ONCE IVP 04/24/23 14:30 04/24/23 14:31 DC 04/24/23 14:42 50 MCG Iohexol 100 ml ONCE ONCE IV 04/24/23 12:45 04/24/23 12:46 DC 04/24/23 12:51 70 ML Lidocaine HCl 15 ml ONCE ONCE PO 04/24/23 13:15 04/24/23 13:16 DC 04/24/23 13:23 15 ML Ondansetron HCl 4 mg ONCE ONCE IVP 04/24/23 11:15 04/24/23 11:16 DC 04/24/23 11:18 4 MG Pantoprazole 40 mg ONCE ONCE IV 04/24/23 13:15 04/24/23 13:16 DC 04/24/23 13:23 40 MG Potassium Chloride 40 meq ONCE ONCE PO 04/24/23 13:30 04/24/23 13:31 DC 04/24/23 14:16 40 MEQ Sodium Chloride 100 ml ONCE ONCE IV 04/24/23 12:45 04/24/23 12:46 DC 04/24/23 12:51 80 ML Vital Signs/I&O 04/24/23 04/24/23 10:28 14:46 Temp 36.5 Pulse 59 63 Resp 16 18 B/P (MAP) 172/97 (122) 146/93 Pulse Ox 100 97 O2 Delivery Room Air Room Air Blood Pressure Mean: 122 Progress Progress Note : Progress Note Patient seen and evaluated, resting in bed, mild distress. Based on exam and symptoms, differential diagnosis includes to but is not limited to cholecystitis, GERD, gastritis, other intra-abdominal pathologies. Work-up initiated including CBC, CMP, lipase, gallbladder ultrasound. Fentanyl and Zofran ordered. 1315 Labs and imaging reviewed. CBC shows slightly elevated WBC 13.0, decreased hemoglobin 10.3, decreased hematocrit 34, decreased MVC 74, elevated platelets 618. She has had elevated platelets in the past, in June 2017 her platelets were 441 on that visit her hemoglobin and hematocrit were also decreased and were similar to today. CMP shows decreased potassium 3.1, otherwise grossly normal. Urinalysis shows 1+ RBCs, negative for infection. Urine negative. Gallbladder ultrasound shows no acute abnormality. CT shows mild thickening of the proximal colon suggesting possible mild nonspecific colitis. Results discussed with patient. Will give 1 L of fluid in case elevated platelets is related to dehydration, urine specific gravity was slightly elevated 1.020. Patient directed to follow-up with primary care provider regarding anemia and elevated platelets. Patient reports pain is starting to return, will give GI cocktail and Protonix. Plan will be to discharge with prescription for omeprazole. Oral potassium ordered for decreased potassium level. 1426 patient reports some improvement in pain, but states pain is still present. Will order another dose of fentanyl. Patient had told nursing staff earlier that she felt a lot better after the GI cocktail and Protonix. Will discharge with omeprazole. Discharge directions and return precautions provided. Diagnostic Imaging Diagonstic Imaging: Ultrasound Plain Films/CT/US/NM/MRI: abdomen Comments [facility] [place], [place] NAME: EFRAÍN ECHEVARRIAOSCAR Phillips [facility] REC#: [id number] PT STATUS: REG ER : 1990 PHYSICIAN: SRIDEVI ALEXANDRE APRN ADMIT DATE: 04/24/23/ER Draft Date of Exam:04/24/23 US GALLBLADDER [id number] PROCEDURE: US Gallbladder. TECHNIQUE: Multiple Real-time grayscale images were obtained over the right upper quadrant in various projections. INDICATION: Epigastric pain. FINDINGS: The liver is unremarkable. The gallbladder is unremarkable. No bile duct dilatation. Portal venous flow is in the normal hepatopetal direction. There is no ascites. No acute fluid collection. Pancreas is unremarkable. The aorta and IVC are nonaneurysmal. The unobstructed right kidney measuring 10.8 cm is normal. The gallbladder is normal. No stone or sludge. The Doll sign is negative. IMPRESSION: Normal right upper quadrant ultrasound. Dictated on workstation # [id number] Dict: 04/24/23 1218 Trans: 04/24/23 1224 [id number] Interpreted by: MARCO A CARBALLO Electronically signed by: Wanda Imaging: CT Plain Films/CT/US/NM/MRI: abdomen, pelvis Comments [facility] [place] [place] NAME: GIOVANI ECHEVARRIA [facility] REC#: [id number] PT STATUS: REG ER : 1990 PHYSICIAN: SRIDEVI ALEXANDRE APRN ADMIT DATE: 04/24/23/ER Draft Date of Exam:04/24/23 CT ABDOMEN/PELVIS W PROCEDURE: CT abdomen and pelvis with contrast. TECHNIQUE: Multiple contiguous axial images were obtained through the abdomen and pelvis after administration of intravenous contrast. Auto Exposure Controls were utilized during the CT exam to meet ALARA standards for radiation dose reduction. All CT scans use one or more of the following dose optimizing techniques: automated exposure control, MA and/or KvP adjustment based on patient size and exam type or iterative reconstruction. INDICATION: Abdominal pain. No relevant comparison. FINDINGS: The lung bases are clear. The gallbladder not well distended, partly contracted with no visible intraluminal radiodense stone. There is no intra or extrahepatic bile duct dilatation. Pancreas appeared unremarkable. Kidneys unobstructed and nonacute. No small or large bowel obstruction. There is no abnormal fecal loading. The uterus, adnexa and urinary bladder unremarkable. There are no findings of appendicitis or diverticulitis. The colon is not well distended limiting its evaluation. There is equivocal mild thickening of the marshall of the ascending and proximal transverse colon. Terminal ileum and ileocecal valve level appeared normal. No ascites, abscess, hematoma or acute fluid collection. No mesenteric or retroperitoneal adenopathy. No aneurysm or mass. No adnexal abnormality. IMPRESSION: 1. No hepatobiliary, pancreatic, urinary tract or adnexal abnormality identified. 2. Equivocal mild thickening of the proximal colon. This is a borderline finding but in the appropriate scenario could reflect mild nonspecific colitis, no other potential acute finding is revealed at this study. Dictated on workstation # [id number] Dict: 04/24/23 1257 Trans: 04/24/23 1305 CV [id number] Interpreted by: MARCO A CARBALLO Electronically signed by: Departure Impression Primary Impression: Gastritis Qualified Codes: K29.70 - Gastritis, unspecified, without bleeding Additional Impressions: Right upper quadrant abdominal pain Hypokalemia Thrombocytopenia Disposition: HOME, SELF-CARE Condition: Stable Departure-Patient Inst. Decision time for Depature: 14:37 Referrals: HANNAH SALVADOR (PCP/Family) Primary Care Physician Patient Instructions: Gastritis Add. Discharge Instructions: This could be gastric reflux, it also still could be your gallbladder. Try avoiding triggering foods like high-fat foods, spicy foods, alcohol, cigarettes, caffeine, acidic foods. Follow-up with Dr. Mejía. Take omeprazole daily for the next 6 weeks. You may also take Tums, Maalox, or Mylanta [id number]. Increase potassium in your diet. Follow-up with your primary care provider regarding your anemia and elevated platelet level. Return for severe pain, or any other new, concerning, or worsening symptoms. All discharge instructions reviewed with patient and/or family. Voiced understanding. Scripts Omeprazole (Omeprazole) 20 Mg Tablet. 20 MG PO DAILY for 42 Days, #42 TAB 0 Refills Prov: SRIDEVI ALEXANDRE APRN 04/24/23 Copy Copies To 1: [facility]/SRIDEVI ERICKSON APRN Apr 24, 2023 11:12
[2023-04-24] MEDS ORDERED: ONDANSETRON 4 MG/2 ML (SDV) Z0FRAN IVP ONE (11:15)
[2023-04-24 11:32] LABS: BASOPHILS # (AUTO) 0.1 10^3/uL (0.0-0.1); BASOPHILS % (AUTO) 0 % (0-10); EOSINOPHILS # (AUTO) 0.1 10^3/uL (0.0-0.3); EOSINOPHILS % (AUTO) 1 % (0-10); HEMATOCRIT 34 % (35-52); HEMOGLOBIN 10.3 g/dL (11.5-16.0); LYMPHOCYTES # (AUTO) 2.2 10^3/uL (1.0-4.0); LYMPHOCYTES % (AUTO) 17 % (12-44); MEAN CORPUSCULAR HEMOGLOBIN 22 pg (25-34); MEAN CORPUSCULAR HGB CONC 30 g/dL (32-36); MEAN CORPUSCULAR VOLUME 74 fL (80-99); MEAN PLATELET VOLUME 9.4 fL (9.0-12.2); MONOCYTES # (AUTO) 0.8 10^3/uL (0.0-1.0); MONOCYTES % (AUTO) 6 % (0-12); NEUTROPHILS # (AUTO) 9.8 10^3/uL (1.8-7.8); NEUTROPHILS % (AUTO) 75 % (42-75); PLATELET COUNT 618 10^3/uL (130-400)
[2023-04-24 11:32] LABS: BILIRUBIN,URINE NEGATIVE (NEGATIVE); CLARITY,URINE CLEAR; COLOR,URINE YELLOW; GLUCOSE, URINE (UA) NEGATIVE (NEGATIVE); KETONES,URINE NEGATIVE (NEGATIVE); LEUKOCYTE ESTERASE ,URINE NEGATIVE (NEGATIVE); NITRITE,URINE NEGATIVE (NEGATIVE); PROTEIN,URINE 2+ (NEGATIVE)
[2023-04-24 11:36] LABS: ALBUMIN 4.2 GM/DL (3.2-4.5)
[2023-04-24 11:37] LABS: POTASSIUM 3.1 MMOL/L (3.6-5.0)
[2023-04-24 11:38] LABS: CALCIUM 9.2 MG/DL (8.5-10.1)
[2023-04-24 11:39] LABS: TOTAL PROTEIN 7.3 GM/DL (6.4-8.2)
[2023-04-24 11:41] LABS: AMORPHOUS SEDIMENT,UR FEW AMOR PHOSPHATE /LPF; BACTERIA,URINE NEGATIVE /HPF; WBC,URINE 0-2 /HPF
[2023-04-24 11:41] LABS: BILIRUBIN,TOTAL 0.3 MG/DL (0.1-1.0)
[2023-04-24 11:43] LABS: CREATININE SERUM 0.68 MG/DL (0.60-1.30)
--- NOTE | 2023-04-24 12:25 | Diagnostic Imaging Report ---
PROCEDURE: US Gallbladder. TECHNIQUE: Multiple Real-time grayscale images were obtained over the right upper quadrant in various projections. INDICATION: Epigastric pain. FINDINGS: The liver is unremarkable. The gallbladder is unremarkable. No bile duct dilatation. Portal venous flow is in the normal hepatopetal direction. There is no ascites. No acute fluid collection. Pancreas is unremarkable. The aorta and IVC are nonaneurysmal. The unobstructed right kidney measuring 10.8 cm is normal. The gallbladder is normal. No stone or sludge. The Doll sign is negative. IMPRESSION: Normal right upper quadrant ultrasound. Dictated by: Dictated on workstation # [id number]
[2023-04-24] MEDS ORDERED: IOHEXOL 350 MG/ML 100 ML (OMNIPAQUE 350) VIAL IV ONE (12:45)
[2023-04-24] MEDS ORDERED: HOLD METFORMIN - RECEIVED CONTRAST 20 ML VIAL IV SCH (12:45)
[2023-04-24] MEDS ORDERED: NS 100 ML (IVPB) BAG IV ONE (12:45)
--- NOTE | 2023-04-24 13:06 | Diagnostic Imaging Report ---
PROCEDURE: CT abdomen and pelvis with contrast. TECHNIQUE: Multiple contiguous axial images were obtained through the abdomen and pelvis after administration of intravenous contrast. Auto Exposure Controls were utilized during the CT exam to meet ALARA standards for radiation dose reduction. All CT scans use one or more of the following dose optimizing techniques: automated exposure control, MA and/or KvP adjustment based on patient size and exam type or iterative reconstruction. INDICATION: Abdominal pain. No relevant comparison. FINDINGS: The lung bases are clear. The gallbladder not well distended, partly contracted with no visible intraluminal radiodense stone. There is no intra or extrahepatic bile duct dilatation. Pancreas appeared unremarkable. Kidneys unobstructed and nonacute. No small or large bowel obstruction. There is no abnormal fecal loading. The uterus, adnexa and urinary bladder unremarkable. There are no findings of appendicitis or diverticulitis. The colon is not well distended limiting its evaluation. There is equivocal mild thickening of the marshall of the ascending and proximal transverse colon. Terminal ileum and ileocecal valve level appeared normal. No ascites, abscess, hematoma or acute fluid collection. No mesenteric or retroperitoneal adenopathy. No aneurysm or mass. No adnexal abnormality. IMPRESSION: 1. No hepatobiliary, pancreatic, urinary tract or adnexal abnormality identified. 2. Equivocal mild thickening of the proximal colon. This is a borderline finding but in the appropriate scenario could reflect mild nonspecific colitis, no other potential acute finding is revealed at this study. Dictated by: Dictated on workstation # [id number]
[2023-04-24] MEDS ORDERED: PANTOPRAZOLE 40 MG (PROTONIX) VIAL IV ONE (13:15)
[2023-04-24] MEDS ORDERED: LIDOCAINE 2% VISCOUS 15 ML UDC PO ONE (13:15)
[2023-04-24] MEDS ORDERED: ANTACID SUSP 30 ML UDC (MYLANTA) PO ONE (13:15)
[2023-04-24] MEDS ORDERED: NS IV 1000 ML 1,000 ML IV SCH (13:15)
[2023-04-24] MEDS ORDERED: KCL 20 MEQ TAB (K-DUR) PO ONE (13:30)
[2023-04-24] MEDS ORDERED: fentaNYL INJ 100 MCG/2 ML AMP IVP ONE (14:30)
[2023-04-24] MEDS ORDERED: OMEP20TA56 PO (14:36)
[2023-04-24 14:46] VITALS: BP 146/93
== END 2023-04-24 14:51 | disposition home or self-care (01) ==
LOC: EDUNIT# 10:19 → ER 10:20
DX: K29.70 Gastritis, unspecified, without bleeding (principal); E87.6 Hypokalemia; D69.6 Thrombocytopenia, unspecified; K63.89 Other specified diseases of intestine; D75.839 Thrombocytosis, unspecified; I10 Essential (primary) hypertension; F90.9 Attention-deficit hyperactivity disorder, unspecified type; F17.200 Nicotine dependence, unspecified, uncomplicated; Z79.899 Other long term (current) drug therapy
CPT/HCPCS: 36415; 74177; 76705; 80053; 81000; 83690; 84703; 85025

== ENCOUNTER → 2023-04-24 | Outpatient (CLI) | payer MEDICAID ==
[~2023-04-24] MED LIST changes: +OMEP20TA56 PO
== END ==
LOC: ER 11:20
PROVIDERS: ATTEND Nurse Practitioner
DX: Z53.9 Procedure and treatment not carried out, unspecified reason (principal)
CPT/HCPCS: 36415; 82728; 83540

== ENCOUNTER → 2023-04-24 | Outpatient (CLI) | payer MEDICAID | LOC: LABNPT 11:00 | PROVIDERS: ATTEND Nurse Practitioner | DX: D50.9 Iron deficiency anemia, unspecified (principal) | CPT/HCPCS: 36415; 82728; 83540 ==

== ENCOUNTER → 2023-05-08 | Outpatient (CLI) | payer MEDICAID ==
[~2023-05-08] MED LIST changes: +CATHETER FLUSH 10 ML SYR IVP PRN; +OMEP20TA56 PO
--- NOTE | 2023-05-08 14:45 | Diagnostic Imaging Report ---
Indication: Epigastric pain. Patient was administered 5.4 mCi technetium 99m Choletec intravenously and imaging over the abdomen was performed. At 60 minutes patient ingested 8 ounces of ensure and a gallbladder ejection fraction was calculated. There is homogeneous uptake of activity by the liver with prompt excretion of activity into the gallbladder and common duct. There is normal passage of activity into the small bowel. Gallbladder ejection fraction is normal at 63%. IMPRESSION: Normal HIDA scan and gallbladder ejection fraction. Dictated by: Dictated on workstation # [id number]
== END ==
LOC: CARD 12:19
PROVIDERS: ATTEND Surgery
DX: R10.13 Epigastric pain (principal)
CPT/HCPCS: 78227; A9537

== ENCOUNTER 2023-05-24 05:38 | Outpatient (CLI) | payer MEDICAID ==
[~2023-05-24] VITALS: Ht 157.5 cm; Wt 63.1 kg
[~2023-05-24 05:38] MED LIST changes: -CATHETER FLUSH 10 ML SYR IVP PRN
[2023-05-24] MEDS ORDERED: ACET325T49 PO (15:06)
[2023-05-24] MEDS ORDERED: AMPH25CA3 PO (15:06)
== END 2023-05-24 15:12 | disposition home or self-care (01) ==
LOC: PREOP 05:38
PROVIDERS: ATTEND Surgery
DX: Z01.818 Encounter for other preprocedural examination (principal)

== ENCOUNTER 2023-08-23 05:33 | Outpatient (CLI) | payer MEDICAID ==
[~2023-08-23] VITALS: Ht 157.4 cm; Wt 63.0 kg
[~2023-08-23 05:33] MED LIST changes: +ACET325T49 PO; +AMPH25CA3 PO
== END 2023-08-28 13:59 | disposition home or self-care (01) ==
LOC: PREOP 05:33
PROVIDERS: ATTEND Surgery
DX: Z01.818 Encounter for other preprocedural examination (principal)

== ENCOUNTER 2023-09-05 08:49 | Day surgery (SDC) | payer MEDICAID ==
[~2023-09-05] VITALS: Ht 157.4 cm; Wt 63.0 kg
[~2023-09-05 08:49] MED LIST changes: +HURRICAINE EXT TUBE (BENZOCAINE) XX PRN; +LACTATED RINGERS 1,000 ML 1,000 ML IV STA
[2023-09-05] MEDS ORDERED: LACTATED RINGERS 1,000 ML 1,000 ML IV STA (08:54)
[2023-09-05] MEDS ORDERED: HURRICAINE EXT TUBE (BENZOCAINE) XX PRN (09:00)
[2023-09-05 09:38] VITALS: BP 143/88
[2023-09-05] MEDS ORDERED: MIDAZOLAM INJ 2 MG/2 ML VIAL ONE (10:48)
--- NOTE | 2023-09-05 11:08 | Progress Note-Post Operative ---
Post-Operative Progess Note Surgeon (s)/Agricultural Engineering Technicians (s) Surgeon CLAUDE FLOREZ DO Agricultural Engineering Technicians: n/a Pre-Operative Diagnosis EGD Post-Operative Diagnosis Normal EGD Procedure & Operative Findings Date of Procedure 09/05/23 Procedure Performed/Findings EGD with biopsies Anesthesia Type per SAT INSTRUCTOR Estimated Blood Loss Estimated blood loss (mL): none Specimens/Packing Specimens Removed Antrum x1, GE junction x1 CLAUDE FLOREZ DO Sep 05, 2023 11:08
[2023-09-05 11:10] VITALS: BP 158/77
--- NOTE | 2023-09-05 11:10 | Discharge Inst-Simple/Standard ---
Discharge Inst-Standard Patient Instructions/Follow Up Plan of Care/Instructions/FU: 2 weeks with veena Activity as Tolerated: Yes Discharge Diet: Regular Diet CLAUDE FLOREZ DO Sep 05, 2023 11:10
[2023-09-05 11:15] VITALS: BP 166/85
[2023-09-05 11:20] VITALS: BP 137/78
[2023-09-05 11:31] VITALS: BP 139/78
[2023-09-05 11:41] VITALS: BP 139/78
--- NOTE | 2023-09-05 13:00 | Anesthesia-General Post-Op ---
MAC Patient Condition Mental Status/LOC: Same as Preop Cardiovascular: Satisfactory Nausea/Vomiting: Absent Respiratory: Satisfactory Pain: Controlled Complications: Absent Post Op Complications Complications None Follow Up Care/Instructions Patient Instructions None needed. Anesthesiology Discharge Order Discharge Order Patient is doing well, no complaints, stable vital signs, no apparent adverse anesthesia problems. No complications reported per nursing. MICKI ZHANG CRNA Sep 05, 2023 13:00
--- NOTE | 2023-09-05 18:42 | OPERATIVE REPORT ---
DATE OF SERVICE: 09/05/2023 PREOPERATIVE DIAGNOSIS: Epigastric abdominal pain. POSTOPERATIVE DIAGNOSIS: Normal esophagogastroduodenoscopy. PROCEDURE: EGD with biopsy. SURGEON: Claude Mejía DO ANESTHESIA: Per CERTIFIED MASTER SAFECRACKER. ESTIMATED BLOOD LOSS: None. COMPLICATIONS: None. INDICATIONS: The patient is a 33-year-old female with epigastric abdominal pain. She understands risks and benefits of procedure and wished to proceed. Consent was signed in chart. DESCRIPTION OF PROCEDURE: The patient was, taken to endoscopy suite, placed in left lateral recumbent position. Timeout was performed. Scope was inserted in the mouth, down the esophagus, stomach, into the duodenum without difficulty. No polyps, masses or ulcerations within the duodenum. Scope was slowly retracted back into stomach where it was further insufflated. No polyps, masses or ulcerations. Biopsy of the antrum was obtained. Scope was retroflexed noting no other pathology. Scope was returned to its normal position, slowly withdrawn until distal esophagus. No polyps, masses or ulcerations. Biopsy of GE junction was obtained. Scope was slowly retracted back until completely removed. The patient tolerated the procedure well without any complications, taken to recovery room in stable condition. RECOMMENDATIONS: The patient will follow up on biopsies in 2 weeks. If not [ ] pathology, would consider working up with gallbladder for further evaluation of her pain. Job ID: [id number] DocumentID: [id number] Dictated Date: 09/05/2023 11:09:38 Office Technology Professor Date: 09/05/2023 18:40:00 Dictated By: CLAUDE MEJÍA DO
== END 2023-09-05 11:48 | disposition home or self-care (01) ==
LOC: ENDO 08:49
PROVIDERS: ATTEND Surgery
DX: K31.89 Other diseases of stomach and duodenum (principal); K20.90 Esophagitis, unspecified without bleeding; F17.210 Nicotine dependence, cigarettes, uncomplicated